=== PATIENT | male | born 1950 | race Caucasian/White ===

== ENCOUNTER 2023-01-01 10:18 | Emergency (ER) | payer BC, MEDICARE ==
[~2023-01-01] VITALS: Ht 162.6 cm; Wt 85.5 kg
[2023-01-01] MEDS ORDERED: LISI20TA33 PO (13:05)
[2023-01-01] MEDS ORDERED: AMOX875T2 PO (13:05)
[2023-01-01] MEDS ORDERED: PROBCAP14 PO (13:05)
[2023-01-01] MEDS ORDERED: OMEP-173 PO (13:05)
[2023-01-01] MEDS ORDERED: DUTA1CAP PO (13:05)
[2023-01-01] MEDS ORDERED: PRAV80TA2 PO (13:05)
[2023-01-01 14:27] LABS: BASO # 0.1 10^3/uL (0.0-0.2); BASO % 0.5 % (0.0-1.0); EOS # 0.1 10^3/uL (0.0-0.5); EOS % 0.6 % (0.0-3.0); HEMATOCRIT 43.1 % (42.0-52.0); HEMOGLOBIN 14.6 g/dl (13.5-17.5); LYMPH # 1.2 10^3/uL (1.5-5.0); LYMPH % 12.7 % (24.0-44.0); MEAN CORPUSCULAR HEMOGLOBIN 33.6 pg (27.0-33.0); MEAN CORPUSCULAR HGB CONC 33.9 g/dl (32.0-36.5); MEAN CORPUSCULAR VOLUME 99.1 fl (80.0-96.0); MONO # 0.5 10^3/uL (0.0-0.8); MONO % 4.7 % (2.0-8.0); NEUTROPHILS # 7.7 10^3/uL (1.5-8.5); PLATELET COUNT, AUTOMATED 271 10^3/uL (150-450); RED BLOOD COUNT 4.35 10^6/uL (4.30-6.10); WHITE BLOOD COUNT 9.5 10^3/uL (4.0-10.0)
[2023-01-01] MEDS ORDERED: ISOVUE-370 76% 100ML VIAL As Ordered ONE (14:37)
[2023-01-01 14:38] LABS: ERYTHROCYTE SEDIMENTATION RATE 11 mm/hr (0-20)
[2023-01-01] MEDS ORDERED: cefTRIAXone SOD 1 GM in D5W MINI-BAG PLUS 50 ML IV ONE (15:30)
[2023-01-01 16:35] VITALS: BP 139/66; TEMP 97.9; O2SAT 98
== END 2023-01-01 16:37 | disposition home or self-care (01) ==
LOC: M ED 10:18
DX: L03.211 Cellulitis of face (principal); I10 Essential (primary) hypertension; F17.200 Nicotine dependence, unspecified, uncomplicated; Z79.2 Long term (current) use of antibiotics; Z79.811 Long term (current) use of aromatase inhibitors; Z79.899 Other long term (current) drug therapy
CPT/HCPCS: 36415; 70487; 80047; 83605; 85025; 85652; 86140; 99283; J0696; Q9967

== ENCOUNTER → 2023-02-28 | Outpatient (CLI) | payer MEDICARE ==
[~2023-02-28] MED LIST: AMOX875T2 PO; DUTA1CAP PO; LISI20TA33 PO; OMEP-173 PO; PRAV80TA2 PO; PROBCAP14 PO
== END ==
LOC: M LAB 08:12
PROVIDERS: ATTEND Nurse Practitioner Family
DX: R97.20 Elevated prostate specific antigen [PSA] (principal)

== ENCOUNTER 2024-10-28 18:06 | Emergency (ER) | payer MEDICARE ==
[~2024-10-28] VITALS: Ht 154.9 cm; Wt 86.4 kg
[2024-10-28] MEDS: DOXYCYCLINE HYCLATE 100MG TABLET PO ONE (20:55)
[2024-10-28 21:10] VITALS: BP 139/77; TEMP 96.8; O2SAT 96
== END 2024-10-28 21:13 | disposition home or self-care (01) ==
LOC: M ED 18:06
DX: S10.96XA Insect bite of unspecified part of neck, initial encounter (principal); W57.XXXA Bitten or stung by nonvenomous insect and other nonvenomous arthropods, initial encounter; Y92.9 Unspecified place or not applicable; Y93.9 Activity, unspecified; Y99.9 Unspecified external cause status; K21.9 Gastro-esophageal reflux disease without esophagitis; I10 Essential (primary) hypertension; Z79.899 Other long term (current) drug therapy

== ENCOUNTER 2025-01-27 13:28 | Emergency (ER) | payer MEDICARE ==
[~2025-01-27] VITALS: Ht 154.9 cm; Wt 86.0 kg
[~2025-01-27 13:28] MED LIST changes: -PRAV80TA2 PO; +PRAV80TA75 PO
[2025-01-27] MEDS: LIDOCAINE 1% MDV 20 ML VIAL SC ONE (14:30)
[2025-01-27] MEDS: TETANUS/DIPHTH/ACEL. PERTUSSIS 0.5 ML SYR IM.IMMUN ONE (14:33)
[2025-01-27 15:41] VITALS: BP 132/69; TEMP 97.9; O2SAT 94
== END 2025-01-27 15:43 | disposition home or self-care (01) ==
LOC: M ED 13:28
DX: S61.211A Laceration without foreign body of left index finger without damage to nail, initial encounter (principal); S61.213A Laceration without foreign body of left middle finger without damage to nail, initial encounter; W26.0XXA Contact with knife, initial encounter; Y92.009 Unspecified place in unspecified non-institutional (private) residence as the place of occurrence of the external cause; Y93.9 Activity, unspecified; Y99.9 Unspecified external cause status; I10 Essential (primary) hypertension; E78.5 Hyperlipidemia, unspecified; Z79.899 Other long term (current) drug therapy